=== PATIENT | female | born 1950 | race Caucasian/White ===

== ENCOUNTER 2016-05-04 19:56 | Emergency (ER) | payer OTHER ==
[~2016-05-04] VITALS: Ht 152.4 cm; Wt 74.5 kg
[~2016-05-04 19:56] MED LIST: ASPI-664 PO; ATOR40TA68 PO; BEN50 PO; BENA40TA41 PO; CARV6.25 PO; CIPR500T4 PO; FENO145T25 PO; GABA300C16 PO; LANT3I SC; METF1000 PO; NOVO3I SC
[2016-05-04 20:33] VITALS: Ht 152.4 cm; Wt 74.5 kg
--- NOTE | 2016-05-04 21:10 | ERD ---
ER Documentation Chief Complaint Date/Time DATE: 05/04/16 TIME: 21:06 Chief Complaint Flu symptoms X2 days with Post tussive emesis HPI 66-year-old female presents with chief complaint of cough 2 days. Associated symptoms include fever, sore throat, and 2 episodes of posttussive vomiting. She denies getting a flu vaccine this year. Has not tried any medications for relief of her symptoms. Reports history of hypertension and diabetes mellitus type 2. Denies sick contacts. No recent travel. ROS All systems reviewed and are negative except as per history of present illness. Medications Home Meds Active Scripts Benzocaine/Menthol* (Cepacol* Sore Throat Lozenges) 1 Each Lozenge, 1 EACH MM q2h Y for SORE THROAT for 5 Days, #20 LOZENGE Prov:Yaneth Hi PA-C 05/04/16 Dextromethorphan Hb-Promethazine Hcl* (Promethazine DM* Syrup) 473 Ml Syrup, 5 ML PO Q6 Y for COUGH for 5 Days, #1 BOTTLE Prov:Yaneth Hi PA-C 05/04/16 Diphenhydramine Hcl* (Benadryl*) 50 Mg Cap, 50 MG PO Q6 Y for ITCHING, #30 CAP Prov:GELY YUEN PA-C 03/01/15 Ciprofloxacin Hcl* (Ciprofloxacin Hcl*) 500 Mg Tablet, 500 MG PO BID for 5 Days , TAB Prov:GELY YUEN PA-C 03/01/15 Insulin Aspart* (Novolog Insulin Pen*) 100 Unit/Ml Soln, 16 UNIT SC WITH MEALS for 30 Days Prov:SOTO AUGUSTIN NP 11/08/14 Insulin Glargine* (Lantus*) 100 Unit/Ml Soln, 48 UNIT SC QHS for 30 Days Prov:SOTO AUGUSTIN NP 11/08/14 Atorvastatin* (Atorvastatin*) 40 Mg Tablet, 40 MG PO HS for 30 Days, TAB Prov:SOTO AUGUSTIN NP 11/08/14 Fenofibrate Nanocrystallized* (Tricor*) 145 Mg Tab, 145 MG PO DAILY for 30 Days Prov:SOTO AUGUSTIN NP 11/08/14 Carvedilol* (Coreg*) 6.25 Mg Tab, 6.25 MG PO BID for 30 Days Prov:SOTO AUGUSTIN [employer] 11/08/14 Reported Medications Gabapentin* (Gabapentin*) 300 Mg Capsule, 300 MG PO TID, CAP 11/04/14 Metformin Hcl* (Metformin Hcl*) 1,000 Mg Tablet, 1000 MG PO BID, TAB 11/04/14 Aspirin* (Aspirin* EC) 81 Mg Tablet.dr, 81 MG PO DAILY, TAB 03/25/14 Benazepril Hcl* (Benazepril Hcl*) 40 Mg Tablet, 40 MG PO DAILY, TAB 03/25/14 Allergies Allergies: Coded Allergies: No Known Allergy (Unverified , 11/04/14) PMhx/Soc History of Surgery: Yes (CABG) Anesthesia Reaction: No Hx Neurological Disorder: No Hx Respiratory Disorders: No Hx Cardiac Disorders: Yes (high cholesterol, HTN) Hx Psychiatric Problems: No Hx Miscellaneous Medical Probl: Yes (dm2) Hx Alcohol Use: No Hx Substance Use: No Hx Tobacco Use: No Smoking Status: Never smoker FmHx Family History: diabetes Physical Exam Vitals Vital Signs Date Time Temp Pulse Resp B/P Pulse Ox O2 Delivery O2 Flow Rate FiO2 05/04/16 20:33 99.6 78 20 178/85 97 Physical Exam GENERAL: Non-toxic. No apparent signs of distress. HEENT: Atraumatic. Bilateral eyes are PERRL EOM intact. Normal conjunctiva, no injection. No eyelid or lower eyelid swelling noted. Ears: Normal tympanic membrane, no erythema or bulging. No ear canal swelling. No ear discharge. Nose : no nasal discharge. Throat: Oropharynx normal. Tongue pink and moist. No tonsillar swelling or tonsillar exudates. No lymphadenopathy. LUNGS: Clear to auscultation. No accessory muscle use. No wheezing, no crackles. No signs or symptoms of respiratory distress. HEART: Regular rate and rhythm. No murmurs, clicks, rubs or gallops. EXTREMITIES: No peripheral cyanosis or edema. No focal pain or notable trauma. Full range of motion. Good capillary refill. NEURO: The patient moves all 4 extremities with 5/5 strength. Cranial nerves are grossly intact. Normal mental status for age. Good muscle tone. SKIN: There is no apparent rash, petechiae, erythema or swelling. Good skin turgor. Results 24 hrs Current Medications Medications (Trade) Dose Ordered Sig/Oz Route PRN Reason Start Time Stop Time Status Last Admin Dose Admin Acetaminophen (Tylenol Tab) 650 mg ONCE ONCE PO 05/04/16 21:30 05/04/16 21:31 DC Procedures/MDM Although the patient's symptoms appear to be due to flulike illness, I ordered a chest x-ray to rule out pneumonia due to her age and comorbidities of hypertension and diabetes mellitus. Patient given Tylenol in the ER for fever, awaiting results of chest x-ray prior to further management. Chest x-ray: IMPRESSION: 1. Stable chest x-ray with no evidence of active cardiopulmonary disease. 2. Atherosclerosis of the aortic arch. 3. Status post median sternotomy. X-ray results of the chest x-ray with the patient, stated that she should follow -up with her PCP for results revealing atherosclerosis of aortic arch. At this time patient is already taking medication for hyperlipidemia and aspirin daily. Patients multiple complaints are likely to be due to viral etiology. On examination there was no tonsillar edema or exudate, TMs were pink/pearly and non-bulging, lungs were CTAB w/o rhonchi or rales, and patient has no meningismus. Appears to be in NAD, vitals are stable. Therefore, I do not believe that any imaging or blood work is warranted. I have explained to the patient that antibiotics are not effective against viral infections, and can further contribute to antibiotic resistance. Patient advised to practice good hand hygiene to prevent spread of viruses. Patient advised to stay hydrated and use the following medications for symptomatic relief: - Tylenol to relieve MOE/fever/body aches. Patient advised to NOT exceed maximum daily dose of 3,000 mg. - Phenergan DM for cough - Saline nasal mist for nasal dryness - Cepacol Lozenges for sore throat or warm salt water gargles I have a low suspicion for PE, pneumonia, TB, strep pharyngitis, peritonsillar abscess, epiglottitis, OM, meningitis, and sepsis. Patient is stable for discharge for and outpatient management at this time. Advised to follow-up with PCP within 1-2 days. Patient is afebrile at time of discharge. Departure Diagnosis: Primary Impression: Upper respiratory infection URI type: unspecified viral URI Qualified Code: J06.9 - Viral upper respiratory tract infection Additional Impression: Atherosclerosis of aortic arch Condition: Yaneth Tuttle PA-C 30, 2017 21:09
--- NOTE | 2016-05-04 21:27 | RADRPT ---
PROCEDURE: XR Chest. CLINICAL INDICATION: Cough and fever. TECHNIQUE: Single frontal view of the chest was obtained COMPARISON: Chest x-ray 11/04/2014. FINDINGS: The soft tissues are normal. A mediastinotomy was performed. Degenerative osteophytes are present in the thoracic spine. The heart, cardiomediastinal silhouette and hilar structures are normal. The pulmonary vasculature is normal. There are vascular calcifications in the aortic arch. No acute inf iltrate is present. The costophrenic angles are normal. IMPRESSION: 1. Stable chest x-ray with no evidence of active cardiopulmonary disease. 2. Atherosclerosis of the aortic arch. 3. Status post median sternotomy. RPTAT:AAJJ Physician Sarahi Date Time Electronically viewed and signed by Kenneth Davenport Physician on 05/04/2016 21:27 NASIR/
[2016-05-04] MEDS ORDERED: ACETAMINOPHEN 325 MG TAB PO ONE (21:30)
[2016-05-04] MEDS ORDERED: BENZ1LOZ52 MM (21:38)
[2016-05-04] MEDS ORDERED: D-ME473S2 PO (21:38)
[2016-05-04] MEDS ORDERED: ACET325T33 PO (21:45)
== END 2016-05-04 23:26 | disposition left against medical advice (07) ==
LOC: FTE 19:56
DX: J06.9 Acute upper respiratory infection, unspecified (principal); I70.0 Atherosclerosis of aorta; I10 Essential (primary) hypertension; E11.9 Type 2 diabetes mellitus without complications; Z79.4 Long term (current) use of insulin; Z98.61 Coronary angioplasty status; Z79.82 Long term (current) use of aspirin; Z79.84 Long term (current) use of oral hypoglycemic drugs
CPT/HCPCS: 71010; Z7610; 99283

== ENCOUNTER 2016-06-02 19:11 | Emergency (ER) | payer OTHER ==
[~2016-06-02] VITALS: Ht 160 cm; Wt 72.0 kg
[~2016-06-02 19:11] MED LIST changes: +ACET325T33 PO; +BENZ1LOZ52 MM; +D-ME473S2 PO
[2016-06-02 22:33] VITALS: Ht 160 cm; Wt 72.0 kg
[2016-06-02] MEDS ORDERED: CEFTRIAXONE 1 GM/50 ML (PMX) 50 ML IVPB ONE (23:30)
[2016-06-02] MEDS ORDERED: SOD CHLORIDE 0.9% 500 ML IV ONE (23:30)
[2016-06-02] MEDS ORDERED: HYDROCODONE/APAP (5/325) TAB PO ONE (23:30)
[2016-06-02] MEDS ORDERED: LIDOCAINE 1% (MDV) 20 ML INJ SC ONE (23:30)
[2016-06-02 23:42] LABS: ADD SCAN DIFF NO
[2016-06-02 23:44] LABS: BASOPHILS % 0.2 % (0.0-2.0); EOSINOPHILS # 0.1 10^3/ul (0.0-0.5); EOSINOPHILS % 0.3 % (0.0-7.0); HEMATOCRIT 30.3 % (37.0-47.0); HEMOGLOBIN 10.6 g/dl (12.0-16.0); LYMPHOCYTES # 1.2 10^3/ul (0.8-2.9); LYMPHOCYTES % 6.8 % (15.0-51.0); MEAN CORPUSCULAR HEMOGLOBIN 29.9 pg (29.0-33.0); MEAN CORPUSCULAR VOLUME 85.6 fl (82.0-101.0); MEAN PLATELET VOLUME 10.6 fl (7.4-10.4); MONOCYTES % 5.8 % (0.0-11.0); NEUTROPHIL # 15.3 10^3/ul (1.6-7.5); NEUTROPHILS % 86.2 % (39.0-77.0); PLATELET COUNT 290 10^3/UL (140-415); RED BLOOD COUNT 3.54 10^6/ul (4.20-5.40); WHITE BLOOD COUNT 17.7 10^3/ul (4.8-10.8)
[2016-06-02 23:56] LABS: INR 0.96; PROTIME 12.8 Sec (12.2-14.2)
[2016-06-02 23:57] LABS: PARTIAL THROMBOPLASTIN TIME 27.2 Sec (25.0-35.0)
[2016-06-03 00:02] LABS: ALBUMIN 3.1 g/dl (3.3-4.9); ALBUMIN/GLOBULIN RATIO 0.86; BILIRUBIN,INDIRECT 0.2 mg/dl (0-1.1); BILIRUBIN,TOTAL 0.2 mg/dl (0.2-1.3); CALCIUM 8.6 mg/dl (8.4-10.2); CREATININE 1.49 mg/dl (0.44-1.00); POTASSIUM 4.2 mmol/L (3.5-5.1); TOTAL PROTEIN 6.7 g/dl (6.1-8.1)
[2016-06-03] MEDS ORDERED: ONDANSETRON 4 MG INJ IV STA (00:17)
[2016-06-03] MEDS ORDERED: morphine 4 MG/ML VIAL IV STA (00:17)
--- NOTE | 2016-06-03 00:44 | RADRPT ---
PROCEDURE: XR Chest. CLINICAL INDICATION: Chest pain. Possible sepsis TECHNIQUE: Portable AP upright view of the chest was obtained. COMPARISON: 06/04/2016 FINDINGS: The cardiomediastinal silhouette is within upper normal limits. The lungs are clear. There is no e vidence for pleural effusion, pneumothorax or pulmonary vascular congestion. Sternotomy wires are a gain noted. There is no evidence of acute osseous abnormality. RPTAT:HJJR IMPRESSION: Post thoracotomy changes without evidence for acute intrathoracic pathology or interval change from 05/04/2016. Physician Jourdan Date Time Electronically viewed and signed by Physician Jourdan on 06/03/2016 00:44 JR/
[2016-06-03] MEDS ORDERED: SOD CHLORIDE 0.9% 1,000 ML IV ONE (01:00)
[2016-06-03] MEDS ORDERED: SOD CHLORIDE 0.9% 500 ML IV ONE (01:00)
[2016-06-03] MEDS ORDERED: INSULIN LISPRO 100 UNIT/ML VIAL SC STA (02:19)
[2016-06-03] MEDS ORDERED: CEPH-443 PO (02:37)
[2016-06-03] MEDS ORDERED: IBUP-1542 PO (02:37)
[2016-06-03] MEDS ORDERED: SULF1TAB31 PO (02:37)
[2016-06-03 04:21] VITALS: BP 147/65; PULSE 65; RESP 15; TEMP 99.4
--- NOTE | 2016-06-03 07:08 | ERD ---
ER Documentation Chief Complaint Date/Time DATE: 06/03/16 TIME: 06:58 Chief Complaint swelling, redness and pain to "middle between legs" HPI 66-year-old female complaining of pain, redness and swelling on the right side of the perineum 4 days. Patient reports subjective fever for the last 2 days. She has chills. Denies cough or runny nose. Denies shortness of breath. Denies chest pain. Denies abdominal pain, nausea, vomiting, or diarrhea. Patient has history of diabetes, hypertension, and high cholesterol. She is taking metformin for diabetes, and medications for cholesterol. ROS All systems reviewed and are negative except as per history of present illness. Medications Home Meds Active Scripts Cephalexin* (Keflex*) 500 Mg Capsule, 500 MG PO QID for 7 Days, CAP Prov:MARGO DE NP 06/03/16 Sulfamethoxazole/Trimethoprim* (Bactrim Ds* Tablet) 1 Each Tablet, 1 TAB PO BID , #14 TAB Prov:MARGO DE NP 06/03/16 Ibuprofen* (Motrin*) 600 Mg Tab, 600 MG PO Q6H Y for PAIN AND OR ELEVATED TEMP, #30 TAB Prov:MARGO DE NP 06/03/16 Acetaminophen* (Tylenol*) 325 Mg Tablet, 2 TAB PO Q6 Y for PAIN AND OR ELEVATED TEMP, #20 TAB Prov:Yaneth Hi PA-C 05/04/16 Benzocaine/Menthol* (Cepacol* Sore Throat Lozenges) 1 Each Lozenge, 1 EACH MM q2h Y for SORE THROAT for 5 Days, #20 LOZENGE Prov:Yaneth Hi PA-C 05/04/16 Dextromethorphan Hb-Promethazine Hcl* (Promethazine DM* Syrup) 473 Ml Syrup, 5 ML PO Q6 Y for COUGH for 5 Days, #1 BOTTLE Prov:Yaneth Hi PA-C 05/04/16 Diphenhydramine Hcl* (Benadryl*) 50 Mg Cap, 50 MG PO Q6 Y for ITCHING, #30 CAP Prov:GELY YUEN PA-C 03/01/15 Ciprofloxacin Hcl* (Ciprofloxacin Hcl*) 500 Mg Tablet, 500 MG PO BID for 5 Days , TAB Prov:GELY YUEN PA-C 03/01/15 Insulin Aspart* (Novolog Insulin Pen*) 100 Unit/Ml Soln, 16 UNIT SC WITH MEALS for 30 Days Prov:SOTO AUGUSTIN NP 11/08/14 Insulin Glargine* (Lantus*) 100 Unit/Ml Soln, 48 UNIT SC QHS for 30 Days Prov:SOTO AUGUSTIN NP 11/08/14 Atorvastatin* (Atorvastatin*) 40 Mg Tablet, 40 MG PO HS for 30 Days, TAB Prov:SOTO AUGUSTIN NP 11/08/14 Fenofibrate Nanocrystallized* (Tricor*) 145 Mg Tab, 145 MG PO DAILY for 30 Days Prov:SOTO AUGUSTIN NP 11/08/14 Carvedilol* (Coreg*) 6.25 Mg Tab, 6.25 MG PO BID for 30 Days Prov:SOTO AUGUSTIN NP 11/08/14 Reported Medications Gabapentin* (Gabapentin*) 300 Mg Capsule, 300 MG PO TID, CAP 11/04/14 Metformin Hcl* (Metformin Hcl*) 1,000 Mg Tablet, 1000 MG PO BID, TAB 11/04/14 Aspirin* (Aspirin* EC) 81 Mg Tablet.dr, 81 MG PO DAILY, TAB 03/25/14 Benazepril Hcl* (Benazepril Hcl*) 40 Mg Tablet, 40 MG PO DAILY, TAB 03/25/14 Allergies Allergies: Coded Allergies: No Known Allergy (Unverified , 11/04/14) PMhx/Soc History of Surgery: Yes (CABG) Anesthesia Reaction: No Hx Neurological Disorder: No Hx Respiratory Disorders: No Hx Cardiac Disorders: Yes (high cholesterol, HTN) Hx Psychiatric Problems: No Hx Miscellaneous Medical Probl: Yes (dm2) Hx Alcohol Use: No Hx Substance Use: No Hx Tobacco Use: No Smoking Status: Never smoker Physical Exam Vitals Vital Signs Date Time Temp Pulse Resp B/P Pulse Ox O2 Delivery O2 Flow Rate FiO2 06/03/16 04:21 99.4 65 15 147/65 99 Room Air 06/02/16 22:33 101.4 100 24 146/70 96 Physical Exam General impression: Well-developed, well-nourished. Alert, oriented, in no acute distress Head: Normocephalic, atraumatic. Eyes: PERRL, EOM normal. Sclerae are normal. Conjunctiva not injected. ENT: External canals patent. TM'sclear. Nasal mucosa, oral mucosa and oropharynx are normal. Neck: Supple, nontender. No lymphadenopathy. No nuchal rigidity. Respiration: Normal respiratory effort. Lungs clear to auscultate bilaterally. No wheezes, rales or rhonchi. Cardiovascular: Regular rate and rhythm. No murmurs or extra heart sounds. Abdomen: Abdomen normal to inspection. Nontender. No masses or organomegaly. Bowel sounds normal. Back: Normal to inspection. No midline spine tenderness. No CVA tenderness. Extremities: Extremities normal to inspection, nontender. ROM normal. Neuro: Mental status normal, speech normal. [employer] grossly intact. Skin: Normal turgor. A 5 cm x 10 cm area of erythema induration noted in the right side of the perineum below the labia, with fluctuance in the middle. Psych: Normal mood and affect. Result Diagram: 06/02/16 2320 06/02/16 2300 Results 24 hrs Laboratory Tests Test 06/02/16 23:00 06/02/16 23:10 06/02/16 23:20 06/03/16 02:19 Prothrombin Time 12.8Sec Prothrombin Time Ratio 1.0 INR International Normalized Ratio 0.96 Activated Partial Thromboplast Time 27.2Sec Sodium Level 125mmol/L Potassium Level 4.2mmol/L Chloride Level 94mmol/L Carbon Dioxide Level 25mmol/L Anion Gap 10 Blood Urea Nitrogen 17mg/dl Creatinine 1.49mg/dl Glucose Level 539mg/dl Lactic Acid Level 1.7mmol/L Calcium Level 8.6mg/dl Total Bilirubin 0.2mg/dl Direct Bilirubin 0.00mg/dl Indirect Bilirubin 0.2mg/dl Aspartate Amino Transf (AST/SGOT) 13IU/L Alanine Aminotransferase (ALT/SGPT) 20IU/L Alkaline Phosphatase 100IU/L Total Protein 6.7g/dl Albumin 3.1g/dl Globulin 3.60g/dl Albumin/Globulin Ratio 0.86 Troponin I < 0.012ng/ml White Blood Count 17.710^3/ul Red Blood Count 3.5410^6/ul Hemoglobin 10.6g/dl Hematocrit 30.3% Mean Corpuscular Volume 85.6fl Mean Corpuscular Hemoglobin 29.9pg Mean Corpuscular Hemoglobin Concent 35.0g/dl Red Cell Distribution Width 12.0% Platelet Count 20496^3/UL Mean Platelet Volume 10.6fl Neutrophils % 86.2% Lymphocytes % 6.8% Monocytes % 5.8% Eosinophils % 0.3% Basophils % 0.2% Nucleated Red Blood Cells % 0.0/100WBC Neutrophils # 15.310^3/ul Lymphocytes # 1.210^3/ul Monocytes # 1.010^3/ul Eosinophils # 0.110^3/ul Basophils # 0.010^3/ul Nucleated Red Blood Cells # 0.010^3/ul Bedside Glucose 355mg/dL Test 06/03/16 03:40 Bedside Glucose 336mg/dL Current Medications Medications (Trade) Dose Ordered Sig/Oz Route PRN Reason Start Time Stop Time Status Last Admin Dose Admin Sodium Chloride 500 ml @ 500 mls/hr Q1H ONCE IV 06/02/16 23:30 06/03/16 00:29 DC 06/02/16 23:44 Ceftriaxone Sodium (Rocephin) 50 ml @ 100 mls/hr ONCE ONCE IVPB 06/02/16 23:30 06/02/16 23:59 DC 06/02/16 23:44 Acetaminophen/ Hydrocodone Bitart ([place] (5/325)) 1 tab ONCE ONCE PO 06/02/16 23:30 06/02/16 23:31 DC 06/02/16 23:45 Lidocaine (Xylocaine 1% (Mdv) 20 ml) 20 ml ONCE ONCE SC 06/02/16 23:30 06/02/16 23:31 DC Morphine Sulfate (morphine) 4 mg ONCE STAT IV 06/03/16 00:17 06/03/16 00:18 DC 06/03/16 00:30 Ondansetron HCl 4 mg 4 mg ONCE STAT IV 06/03/16 00:17 06/03/16 00:19 DC 06/03/16 00:29 Sodium Chloride 1,000 ml @ 1,000 mls/hr Q1H ONCE IV 06/03/16 01:00 06/03/16 01:59 DC 06/03/16 01:05 Sodium Chloride (NS) 500 ml @ 500 mls/hr Q1H ONCE IV 06/03/16 01:00 06/03/16 01:59 DC 06/03/16 01:05 Insulin Human Lispro (Humalog) 8 unit ONCE STAT SC 06/03/16 02:19 06/03/16 02:21 DC 06/03/16 02:46 PROCEDURE: XR Chest. CLINICAL INDICATION: Chest pain. Possible sepsis TECHNIQUE: Portable AP upright view of the chest was obtained. COMPARISON: 06/04/2016 FINDINGS: The cardiomediastinal silhouette is within upper normal limits. The lungs are clear. There is no evidence for pleural effusion, pneumothorax or pulmonary vascular congestion. Sternotomy wires are again noted. There is no evidence of acute osseous abnormality. RPTAT:HJJR IMPRESSION: Post thoracotomy changes without evidence for acute intrathoracic pathology or interval change from 05/04/2016. Physician Jourdan Date Time Electronically viewed and signed by Physician Jourdan on 06/03/2016 00:44 JR/ CC: MARGO DE ROASTER SUPERVISOR Procedures/MDM Procedure note: Incision and Drainage Verbal consent obtained for incision and drainage of patient's abscess. The area was prepped with Betadine. Lidocaine 1% was infiltrated for local anesthesia. After appropriate anesthesia, incision was made using #11 blade. Small amount of purulent discharge was drained from the abscess. The abscess was probed for loculation. Iodoform 1/4" packing tape was inserted into the abscess. The wound was then cleaned and dressed. Patient tolerated procedure well. Medical decision-makin-year-old female with history of diabetes and coronary artery disease presented to ED with abscess and fever. [place] given to the patient in the ED for fever and pain. Sepsis workup was obtained. Normal saline 1 L bolus, and Rocephin 1 g IV piggyback given to the patient. EKG: Normal tachycardia with rate 10 5 bpm, normal axis. Right bundle branch block. No ST segment elevation or depression. No ectopic beats. No QT prolongation. No other EKG abnormalities. EKG read by Dr. Myers. Chest x-ray is negative. Leukocytosis with left shift is seen on CBC. WBC 17.5, neutrophil 86%. CMP unremarkable except for glucose of 539. Lactate 1.7, patient does not have sepsis. Suspicious glucose level is very high, additional 1 L normal saline bolus given to the patient. Accu-Chek after 2 L bolus was 355. 8 units of Humalog given to the patient subcutaneously. Patient is advised to return to eating 2 days for wound check and dressing change, and follow-up with her PCP within 1 week for diabetes management. Patient appears well, stable for discharge and outpatient management. Medical decision making shared with patient and family. Education provided to patient and family. Patient and family expressed understanding of the plan. Medications on discharge: Keflex, Bactrim DS, ibuprofen. Follow-up: Primary care provider in 2-3 days or return to ED if worse. Departure Diagnosis: Primary Impression: Abscess Additional Impression: Type 2 diabetes mellitus with hyperglycemia Diabetes mellitus senior care insulin use: without extermination inspector use Qualified Code : E11.65 - Type 2 diabetes mellitus with hyperglycemia, without long-term current use of insulin Condition: Stable Patient Instructions: Abscess, Incision And Drainage Referrals: DOCTOR,NOT ON STAFF (PCP) [facility] Usted se damian hecho un examen mdico de control que le indica que no est en keith condicin que requiera tratamiento urgente en el Departamento de Emergencia. Un estudio ms profundo y el tratamiento de bird condicin pueden esperar sin ningn riesgo hasta que usted sea atendida/o en el consultorio de bird mdico o keith cl wang. Es responsabilidad suya arreglar keith michelle para el seguimiento del frank. MANEJO DE CONDICIONES NO URGENTES EN EL FUTURO 1) Si usted tiene un mdico de atencin primaria: Usted debera llamar a bird mdico de atencin primaria antes de venir al departamento de emergencia. Despus de las horas de consultorio, bird doctor o bird asociado/a est disponible por telfono. El mdico o enfermero de song en el servicio telefnico puede asesorarle por ollie medio para atender el problema, o frank contrario se puede programar keith michelle. 2) Si usted no tiene un mdico de atencin primaria: Llame al mdico o clnica de referencia que aparece abajo mary las horas de consultorio para hacer keith michelle para que le vean. CLINICAS: [place] [id number] [phone] [facility] [phone] [facility] [phone] [facility] [phone] [id number] [place] [address] [phone] [facility] [phone] [address] Additional Instructions: Regrese a estas instalaciones dentro de [place] para un examen de seguimiento.Regrese antes si bird condicin se empeora. Llame al doctor MAANA y abdi keith MICHELLE PARA DENTRO DE 2-3 CALDERON.Dgale a la secretaria que nosotros le instruimos hacer esta michelle.Avise o llame si bird condicin se empeora antes de la michelle. Regresa aqui si peor o no mejor. MARGO DE NP Jun 03, 2016 07:08
== END 2016-06-03 04:21 | disposition home or self-care (01) ==
LOC: FTE 19:11
DX: L02.215 Cutaneous abscess of perineum (principal); E11.65 Type 2 diabetes mellitus with hyperglycemia; I10 Essential (primary) hypertension; Z79.4 Long term (current) use of insulin; Z79.82 Long term (current) use of aspirin; Z79.84 Long term (current) use of oral hypoglycemic drugs
CPT/HCPCS: 36415; 56405; 71010; 80053; 82962; 83605; 84484; 85025; 85610; 85730; 87040; 93005; 96372; 96374; 96375; J0696; J1815; J2270; J2405; J7030; J7040; Z7502; Z7610

== ENCOUNTER 2016-06-05 16:12 | Emergency (ER) | payer SELFPAY ==
[~2016-06-05] VITALS: Ht 152.4 cm; Wt 72.5 kg
[~2016-06-05 16:12] MED LIST changes: +CEPH-443 PO; +IBUP-1542 PO; +SULF1TAB31 PO
[2016-06-05 16:18] VITALS: Ht 152.4 cm; Wt 72.5 kg
[2016-06-05] MEDS ORDERED: HYDROmorphONE 1 MG/ML SYG IV STA (20:14)
[2016-06-05] MEDS ORDERED: ONDANSETRON 4 MG INJ IV STA (20:14)
[2016-06-05] MEDS ORDERED: LIDOCAINE 1%/EPI 30 ML INJ INJ STA (20:14)
[2016-06-05] MEDS ORDERED: LIDOCAINE 2%/EPI (MDV) 20ML INJ INJ ONE (20:30)
[2016-06-05 21:10] LABS: ADD SCAN DIFF NO
--- NOTE | 2016-06-05 21:12 | ERA ---
ER Documentation Chief Complaint Date/Time DATE: 06/05/16 TIME: 21:10 Chief Complaint Complains of pelvic pain and urine problem HPI This is a 66-year-old Kinyarwanda-speaking female. An train clerk has been used. The patient presents because of an abscess and pain to the right perineum and buttock. Patient had incision and drainage of an abscess 2 days ago and was started on Bactrim and Keflex. She describes persistent pain that is worse with sitting. She denies any abdominal pain, rectal pain, fevers or chills. The patient did have leukocytosis of 17 during ER visit 2 days ago. ROS All systems reviewed and are negative except as per history of present illness. Medications Home Meds Active Scripts Ondansetron (Ondansetron Odt) 4 Mg Tab.rapdis, 4 MG PO Q6H Y for NAUSEA AND/OR VOMITING, #20 TAB Prov:SKYLAR BRYANT MD 06/05/16 Reported Medications Insulin Glargine* (Lantus*) 100 Unit/Ml Soln, 40 UNIT SC QHS, #1 VIAL 06/05/16 Fenofibrate Nanocrystallized* (Fenofibrate*) 145 Mg Tablet, 145 MG PO DAILY, TAB 06/05/16 Atorvastatin* (Atorvastatin*) 80 Mg Tablet, 80 MG PO QHS, #30 TAB 06/05/16 Metformin Hcl* (Metformin Hcl*) 1,000 Mg Tablet, 1000 MG PO WITH BREAKFAST DINNE , #60 TAB 06/05/16 Carvedilol* (Carvedilol*) 12.5 Mg Tablet, 12.5 MG PO BID, #60 TAB 06/05/16 Gabapentin* (Gabapentin*) 300 Mg Capsule, 300 MG PO TID, #90 CAP 06/05/16 Benazepril Hcl* (Benazepril Hcl*) 40 Mg Tablet, 40 MG PO DAILY, #30 TAB 06/05/16 Aspirin* (Aspirin* EC) 81 Mg Tablet.dr, 81 MG PO DAILY, TAB 06/05/16 Discontinued Reported Medications Gabapentin* (Gabapentin*) 300 Mg Capsule, 300 MG PO TID, CAP 11/04/14 Metformin Hcl* (Metformin Hcl*) 1,000 Mg Tablet, 1000 MG PO BID, TAB 11/04/14 Aspirin* (Aspirin* EC) 81 Mg Tablet.dr, 81 MG PO DAILY, TAB 03/25/14 Benazepril Hcl* (Benazepril Hcl*) 40 Mg Tablet, 40 MG PO DAILY, TAB 03/25/14 Discontinued Scripts Cephalexin* (Keflex*) 500 Mg Capsule, 500 MG PO QID for 7 Days, CAP Prov:MARGO DE NP 06/03/16 Sulfamethoxazole/Trimethoprim* (Bactrim Ds* Tablet) 1 Each Tablet, 1 TAB PO BID , #14 TAB Prov:MARGO DE [employer] 06/03/16 Ibuprofen* (Motrin*) 600 Mg Tab, 600 MG PO Q6H Y for PAIN AND OR ELEVATED TEMP, #30 TAB Prov:MARGO DE [employer] 06/03/16 Acetaminophen* (Tylenol*) 325 Mg Tablet, 2 TAB PO Q6 Y for PAIN AND OR ELEVATED TEMP, #20 TAB Prov:Yaneth HiC 05/04/16 Benzocaine/Menthol* (Cepacol* Sore Throat Lozenges) 1 Each Lozenge, 1 EACH MM q2h Y for SORE THROAT for 5 Days, #20 LOZENGE Prov:Yaneth HiC 05/04/16 Dextromethorphan Hb-Promethazine Hcl* (Promethazine DM* Syrup) 473 Ml Syrup, 5 ML PO Q6 Y for COUGH for 5 Days, #1 BOTTLE Prov:Yaneth HiC 05/04/16 Diphenhydramine Hcl* (Benadryl*) 50 Mg Cap, 50 MG PO Q6 Y for ITCHING, #30 CAP Prov:GELY YUENC 03/01/15 Ciprofloxacin Hcl* (Ciprofloxacin Hcl*) 500 Mg Tablet, 500 MG PO BID for 5 Days , TAB Prov:GELY YUENC 03/01/15 Insulin Aspart* (Novolog Insulin Pen*) 100 Unit/Ml Soln, 16 UNIT SC WITH MEALS for 30 Days Prov:SOTO AUGUSTIN NP 11/08/14 Insulin Glargine* (Lantus*) 100 Unit/Ml Soln, 48 UNIT SC QHS for 30 Days Prov:SOTO AUGUSTIN NP 11/08/14 Atorvastatin* (Atorvastatin*) 40 Mg Tablet, 40 MG PO HS for 30 Days, TAB Prov:SOTO AUGUSTIN [employer] 11/08/14 Fenofibrate Nanocrystallized* (Tricor*) 145 Mg Tab, 145 MG PO DAILY for 30 Days Prov:SOTO AUGUSTIN [employer] 11/08/14 Carvedilol* (Coreg*) 6.25 Mg Tab, 6.25 MG PO BID for 30 Days Prov:SOTO AUGUSTIN [employer] 11/08/14 Allergies Allergies: Coded Allergies: No Known Allergy (Unverified , 06/05/16) PMhx/Soc History of Surgery: Yes (CABG) Anesthesia Reaction: No Hx Neurological Disorder: No Hx Respiratory Disorders: No Hx Cardiac Disorders: Yes (high cholesterol, HTN) Hx Psychiatric Problems: No Hx Miscellaneous Medical Probl: Yes (dm2) Hx Alcohol Use: No Hx Substance Use: No Hx Tobacco Use: No Smoking Status: Never smoker FmHx Family History: No diabetes Physical Exam Vitals Vital Signs Date Time Temp Pulse Resp B/P Pulse Ox O2 Delivery O2 Flow Rate FiO2 06/05/16 22:01 98.4 71 20 172/61 100 Room Air 06/05/16 20:42 98.6 76 20 145/109 98 Room Air 06/05/16 16:18 98.6 74 20 101/53 97 Physical Exam General: Well developed, well nourished, no acute distress Head: Normocephalic, atraumatic. Eyes: Pupils equally reactive, EOM intact ENT: Moist mucous membranes Neck: Supple, no lymphadenopathy Respiratory: Lungs clear bilaterally, no distress Cardiovascular: RRR, no murmurs, rubs, or gallops Abdominal: Soft, non-tender, non-distended, no peritoneal signs : [employer] exam reveals an abscess to the right perineum and buttock was slightly closed os, mild induration and fluctuance is noted. A digital rectal examination reveals no fluctuation or tenderness on internal examination MSK: No edema, no unilateral swelling, 5/5 strength Neurologic: Alert and oriented, moving all extremities, normal speech, no focal weakness, no cerebellar signs Skin: No rash Psych: Normal mood Result Diagram: 06/05/16202406/05/162024 Results 24 hrs Laboratory Tests Test 06/05/16 20:25 White Blood Count 10.710^3/ul Red Blood Count 3.2310^6/ul Hemoglobin 9.5g/dl Hematocrit 28.8% Mean Corpuscular Volume 89.2fl Mean Corpuscular Hemoglobin 29.4pg Mean Corpuscular Hemoglobin Concent 33.0g/dl Red Cell Distribution Width 12.1% Platelet Count 54036^3/UL Mean Platelet Volume 11.0fl Neutrophils % 77.9% Lymphocytes % 13.7% Monocytes % 6.8% Eosinophils % 0.8% Basophils % 0.2% Nucleated Red Blood Cells % 0.0/100WBC Neutrophils # 8.310^3/ul Lymphocytes # 1.510^3/ul Monocytes # 0.710^3/ul Eosinophils # 0.110^3/ul Basophils # 0.010^3/ul Nucleated Red Blood Cells # 0.010^3/ul Sodium Level 128mmol/L Potassium Level 5.1mmol/L Chloride Level 98mmol/L Carbon Dioxide Level 23mmol/L Anion Gap 12 Blood Urea Nitrogen 17mg/dl Creatinine 1.61mg/dl Glucose Level 478mg/dl Calcium Level 8.4mg/dl Current Medications Medications (Trade) Dose Ordered Sig/Oz Route PRN Reason Start Time Stop Time Status Last Admin Dose Admin Hydromorphone HCl (Dilaudid) 0.5 mg ONCE STAT IV 06/05/16 20:14 06/05/16 20:15 DC 06/05/16 20:31 Ondansetron HCl (Zofran Inj) 4 mg ONCE STAT IV 06/05/16 20:14 06/05/16 20:15 DC 06/05/16 20:30 Lidocaine/ Epinephrine (Xylocaine 1%/ Epi) 30 ml ONCE STAT INJ 06/05/16 20:14 06/05/16 20:15 DC 06/05/16 20:45 Lidocaine/ Epinephrine (Xylocaine 2%/ Epi (Mdv) 20 ml) 20 ml ONCE ONCE INJ 06/05/16 20:30 06/05/16 20:31 DC Insulin Human Lispro (Humalog) 6 unit ONCE STAT SC 06/05/16 21:39 06/05/16 21:40 DC 06/05/16 21:49 Procedures/MDM PROCEDURES: Incision and Drainage Note: The patient was consented prior to procedure and understands the risks, benefits , alternatives. The patient states verbal consent. Location: Right perineum and buttock Abscess size: 3.5 cm Anesthesia: 2% lidocaine with epinephrine approximately 5 cc Packing-type: None required The area was prepped in a sterile fashion, a sterile field was prepared. Blunt opening of the original incision site was performed. purulent material was expressed with blunt probing to break up loculations as well as direct pressure. Packing was placed as described above. The patient tolerated the procedure well and there were no complications. A clean dressing was applied. LAB INTERPRETATION: Hyperglycemia without evidence of DKA, normal white count of 10.7 MEDICAL DECISION MAKING: The patient presents with abscess of the right perineum and buttock. The patient's clinical exam is consistent with persistent abscess versus poor drainage. The patient does have appropriate antibiotic regimen. She has no clinical signs or symptoms concerning for perirectal abscess. This is clearly superficial and perianal. The patient did have leukocytosis of 17 during recent ER evaluation, repeat blood work would be appropriate. ER COURSE: I performed blunt dissection and breaking of loculations at the bedside. The patient has improved drainage and improved symptoms at this time. The patient's white count has improved. She has hyperglycemia but no evidence of DKA. At this time I am not convinced this is antibiotic failure. The patient only had 2 days of antibiotic. I believe that the patient needed a reopening of the abscess as it was not draining appropriately. No signs or symptoms of deep space infection. I do not believe that CT imaging of the pelvis is necessary. The patient was advised of sit baths, close primary care follow-up and return precautions. Outpatient referral to general surgeon was provided. I kept the patient and/or family informed of laboratory and diagnostic imaging results throughout the emergency room course. DISPOSITION PLAN: We discussed follow up with the patient's primary care doctor within 24 to 48 hours as needed. We also discussed return to the emergency room for worsening symptoms or worsening condition. Outpatient referral: General surgery Discharge Medications: Continue Bactrim and Keflex, addition of Zofran Departure Diagnosis: Primary Impression: Hyperglycemia Additional Impression: Perianal abscess Condition: Good SKYLAR BRYANT MD June 05, 2016 21:12
[2016-06-05 21:14] LABS: BASOPHILS % 0.2 % (0.0-2.0); EOSINOPHILS # 0.1 10^3/ul (0.0-0.5); EOSINOPHILS % 0.8 % (0.0-7.0); HEMATOCRIT 28.8 % (37.0-47.0); HEMOGLOBIN 9.5 g/dl (12.0-16.0); LYMPHOCYTES # 1.5 10^3/ul (0.8-2.9); LYMPHOCYTES % 13.7 % (15.0-51.0); MEAN CORPUSCULAR HEMOGLOBIN 29.4 pg (29.0-33.0); MEAN CORPUSCULAR VOLUME 89.2 fl (82.0-101.0); MONOCYTE # 0.7 10^3/ul (0.3-0.9); MONOCYTES % 6.8 % (0.0-11.0); NEUTROPHIL # 8.3 10^3/ul (1.6-7.5); NEUTROPHILS % 77.9 % (39.0-77.0); PLATELET COUNT 320 10^3/UL (140-415); RED BLOOD COUNT 3.23 10^6/ul (4.20-5.40); RED CELL DISTRIBUTION WIDTH 12.1 % (11.5-14.5); WHITE BLOOD COUNT 10.7 10^3/ul (4.8-10.8)
[2016-06-05 21:26] LABS: CALCIUM 8.4 mg/dl (8.4-10.2); CREATININE 1.61 mg/dl (0.44-1.00); POTASSIUM 5.1 mmol/L (3.5-5.1)
[2016-06-05] MEDS ORDERED: ASPI-664 PO (21:29)
[2016-06-05] MEDS ORDERED: BENA40TA41 PO (21:30)
[2016-06-05] MEDS ORDERED: CARV12.579 PO (21:30)
[2016-06-05] MEDS ORDERED: GABA300C16 PO (21:30)
[2016-06-05] MEDS ORDERED: METF1000 PO (21:31)
[2016-06-05] MEDS ORDERED: ATOR80TA75 PO (21:31)
[2016-06-05] MEDS ORDERED: FENO145T19 PO (21:31)
[2016-06-05] MEDS ORDERED: LANT3I SC (21:34)
[2016-06-05] MEDS ORDERED: INSULIN LISPRO 100 UNIT/ML VIAL SC STA (21:39)
[2016-06-05 22:01] VITALS: BP 172/61; PULSE 71; RESP 20; TEMP 98.4
[2016-06-05] MEDS ORDERED: ONDA4TAB14 PO (22:10)
== END 2016-06-05 22:28 | disposition home or self-care (01) ==
LOC: E/R 16:12
DX: E11.65 Type 2 diabetes mellitus with hyperglycemia (principal); K61.0 Anal abscess; I10 Essential (primary) hypertension; Z79.4 Long term (current) use of insulin; Z79.82 Long term (current) use of aspirin; Z79.84 Long term (current) use of oral hypoglycemic drugs; Z95.1 Presence of aortocoronary bypass graft
CPT/HCPCS: 46050; 80048; 85025; 96372; 96374; 96375; 99284; J1170; J1815; J2405

== ENCOUNTER 2017-02-16 00:18 | Inpatient (IN) | END 2017-02-22 16:20 | disposition home or self-care (01) | DRG 638 ==

== ENCOUNTER 2017-04-20 15:10 | Inpatient (IN) | END 2017-04-23 15:25 | disposition home or self-care (01) | DRG 683 ==

== ENCOUNTER 2017-08-06 17:45 | Inpatient (IN) | END 2017-08-27 16:40 | disposition home or self-care (01) | DRG 673 ==

== ENCOUNTER 2017-08-30 05:13 | Inpatient (IN) | END 2017-09-01 20:00 | disposition home or self-care (01) | DRG 291 ==

== ENCOUNTER 2017-09-23 19:36 | Inpatient (IN) | END 2017-09-30 13:33 | disposition home or self-care (01) | DRG 264 ==

== ENCOUNTER 2017-10-03 18:08 | Emergency (ER) | END 2017-10-04 04:24 | disposition home or self-care (01) ==

== ENCOUNTER 2017-10-06 15:05 | Inpatient (IN) | END 2017-10-07 19:10 | disposition left against medical advice (07) | DRG 682 ==

== ENCOUNTER 2017-10-18 07:54 | Inpatient (IN) | END 2017-10-19 11:16 | disposition left against medical advice (07) | DRG 640 ==

== ENCOUNTER 2017-10-26 11:46 | Inpatient (IN) | END 2017-10-27 14:24 | disposition home or self-care (01) | DRG 252 ==